=== PATIENT | female | born 1940 | race Caucasian/White ===

== ENCOUNTER 2024-04-16 10:40 | Day surgery (SDC) | payer MEDICARE, BC, MEDICAID, SELFPAY ==
[2024-04-16] VITALS (9 sets, daily range): BP systolic 115–181; BP diastolic 60–121; PULSE 80–99; RESP 12–19; TEMP 36.2–36.8; O2SAT 92–98; BMI 33.6
[2024-04-16] MEDS: MIDAZOLAM INJ 1 MG/ML VIAL 2 ML (ASD USE ONLY) 2 MG IV (12:35)
[2024-04-16] MEDS: DiphenhydrAMINE INJ 50 MG/ML VIAL 25 MG IV (12:38)
[2024-04-16] MEDS: fentaNYL CIT INJ 50 mCg/ML AMP 2ML (ASD USE ONLY) IV (12:38)
[2024-04-16] MEDS: ONDANSETRON INJ 2 MG/ML INJ 2 ML 4 MG IV (12:40)
[2024-04-16] MEDS: SODIUM CHLORIDE 0.9% 250 ML 250 ML 20 ML IV (12:40)
== END 2024-04-16 13:18 | disposition home or self-care (01) ==
PROVIDERS: PCP Otolaryngology; Referring Provider Specialist; Visit Provider Specialist
PROC: (CPT 43239; principal; 2024-04-16 11:00)
DX: K22.2 Esophageal obstruction (principal); K22.10 Ulcer of esophagus without bleeding; K29.60 Other gastritis without bleeding; K29.50 Unspecified chronic gastritis without bleeding
CPT/HCPCS: 43248; 43239; A4649; C1769; J1200; J2250; J2405; J3010; J7050

== ENCOUNTER → 2024-07-17 | Outpatient (CLI) | payer MEDICARE, BC, MEDICAID, SELFPAY ==
--- NOTE | 2024-07-17 16:00 | XR_ITS ---
Examination: CT abdomen and pelvis without contrast. Coronal 3-D reconstructions. Sagittal 2-D reconstructions. Date and time of exam:July 17, 2024 1600 hours INDICATIONS:: Diarrhea upper abdominal pain beginning 3 weeks ago CTDI: vol (mGy): 11 DLP: (mGycm): 565 Technique: Axial images of the abdomen have been obtained, 3 mm slice thickness Intravenous contrast material has not been administered. Low dose protocols were performed. One or more of the following dose reduction techniques were used; automated exposure control, adjustment of the mA and/or KV according to patient size, use of iterative reconstruction technique. Findings: The liver is mildly irregular in contour, no focal liver lesions No gallstones Spleen not enlarged No pancreatic mass No renal or ureteral calculi, no hydronephrosis No bowel obstruction Normal appendix Scattered colonic diverticulosis, no diverticulitis Atrophic uterus Urinary bladder intact Grade 1 anterolisthesis L4 on L5 IMPRESSION: Suspect primary hepatocellular disease, no focal liver lesions No renal or ureteral calculi, no hydronephrosis Scattered colonic diverticulosis, no diverticulitis
== END | disposition home or self-care (01) ==
LOC: CCTX 15:12
PROVIDERS: PCP Emergency Medicine; Referring Provider Specialist; Visit Provider Specialist
DX: K57.30 Diverticulosis of large intestine without perforation or abscess without bleeding (principal)
CPT/HCPCS: 74176

== ENCOUNTER 2024-07-27 10:40 | Day surgery (SDC) | payer MEDICARE, BC, MEDICAID, SELFPAY ==
[2024-07-27] VITALS (8 sets, daily range): BP systolic 107–144; BP diastolic 59–96; PULSE 73–92; RESP 13–20; TEMP 36.4–36.5; O2SAT 93–98; BMI 33.8
[2024-07-27] MEDS: SODIUM CHLORIDE 0.9% 500 ML 500 ML 20 ML IV (12:20)
[2024-07-27] MEDS: MIDAZOLAM INJ 1 MG/ML VIAL 2 ML (ASD USE ONLY) 2 MG IVP (12:25)
[2024-07-27] MEDS: DiphenhydrAMINE INJ 50 MG/ML VIAL 25 MG IVP (12:25)
[2024-07-27] MEDS: fentaNYL CIT INJ 50 mCg/ML AMP 2ML (ASD USE ONLY) IVP (12:28)
--- NOTE | 2024-07-27 13:51 | SUR.PHASEII ---
1310 TRANSPORTATION [facility] CALLED. THIS NURSE IS INFORMED THAT THE SUPERVISOR [employer] IS ON THE WAY TO THE FACILITY FROM [place]. 1330 DISCHARGE INSTRUCTIONS GIVEN TO EKN (PATIENT'S ROOMATE). [phone]. KEN VERBALIZES UNDERSTANDING AND INFORMS THIS NURSE SHE WILL BE HOME TO ACCEPT HER WHEN SHE ARRIVES. 5347 MEDICAL TRANSPORT ARRIVES TO TRANSPORT PATIENT HOME.
== END 2024-07-27 13:53 | disposition home or self-care (01) ==
PROVIDERS: PCP Specialist; Referring Provider Specialist; Visit Provider Specialist
PROC: 0DBE8ZX Excision of Large Intestine, Via Natural or Artificial Opening Endoscopic, Diagnostic (ICD-10-PCS; CPT 45380; principal; 2024-07-27 10:45)
DX: K52.9 Noninfective gastroenteritis and colitis, unspecified (principal); K63.89 Other specified diseases of intestine; K62.89 Other specified diseases of anus and rectum; K64.9 Unspecified hemorrhoids; K57.30 Diverticulosis of large intestine without perforation or abscess without bleeding
CPT/HCPCS: 45380; J1200; J2250; J3010; J7040

== ENCOUNTER → 2024-08-14 | Outpatient (CLI) | payer MEDICARE, BC, MEDICAID, SELFPAY ==
[2024-08-14 10:42] VITALS: PULSE 83; PULSE 85; RESP 18; RESP 20; O2SAT 100; O2SAT 97
[2024-08-14 10:44] VITALS: PULSE 83
[2024-08-14] MEDS: ALBUTEROL RT 2.5 MG/3 ML NEBU INH (10:44)
== END | disposition home or self-care (01) ==
LOC: SRTX 09:16
PROVIDERS: PCP Emergency Medicine; Referring Provider Specialist; Visit Provider Specialist
DX: R06.02 Shortness of breath (principal)
CPT/HCPCS: 94013; 94060; 94640; 94726; 94729

== ENCOUNTER → 2024-12-31 | Outpatient (CLI) | payer MEDICARE, BC, MEDICAID, SELFPAY ==
[2024-12-31 18:08] LABS: Basophils # (Auto) 0.1 Thou/mm3 (0.0-0.2); Basophils % (Auto) 1 % (0-2.5); Eosinophils # (Auto) 0.3 Thou/mm3 (0.0-0.5); Eosinophils % (Auto) 3 % (0-10); Hematocrit 41.7 % (36.0-46.0); Hemoglobin 13.1 g/dL (12.0-16.0); Immature Granulocytes Auto 0.02 Thou/mm3 (0.00-0.00); Lymphocytes # (Auto) 3.8 Thou/mm3 (1.0-4.8); Lymphocytes % (Auto) 36 % (10-50); Mean Corpuscular HGB Conc 31.4 g/dl (31.0-37.0); Mean Corpuscular Hemoglobin 29.6 pg (25.0-35.0); Mean Corpuscular Volume 94 fL (80-100); Monocytes # (Auto) 0.6 Thou/mm3 (0.0-0.8); Monocytes % (Auto) 6 % (0-12); Neutrophils # (Auto) 5.7 Thou/mm3 (1.8-7.7); Neutrophils % (Auto) 54 % (37-80); Nucleated Red Blood Cell # 0.00 Thou/mm3 (0.00-0.00); Nucleated Red Blood Cell % 0 /100 WBC (0); Platelet Count 373 Thou/mm3 (140-440); RDW Standard Deviation 45.4 fL (36.4-46.3); Red Blood Count 4.42 Miln/mm3 (4.00-5.20); White Blood Count 10.5 Thou/mm3 (3.6-11.0)
[2024-12-31 20:46] LABS: Alanine Aminotransferase 9 U/L (10-49); Albumin, Serum 4.7 gm/dL (3.4-4.8); Albumin/Globulin Ratio 2.5 (1.2-2.2); Alkaline Phosphatase 57 U/L (46-116); Anion Gap 11 (7-16); Aspartate Amino Transferase 17 U/L (0-34); BUN/Creatinine Ratio 20 Ratio (12-20); Bilirubin,Total 0.8 mg/dL (0.3-1.2); Blood Urea Nitrogen 16 mg/dL (9-23); Calcium 9.9 mg/dL (8.3-10.6); Calcium (Corrected) 9.9 mg/dL (8.5-10.1); Carbon Dioxide 25.6 mMol/L (20.0-31.0); Chloride 109 mMol/L (98-107); Creatinine (Component) 0.8 mg/dL (0.6-1.3); Free T3 2.7 pg/mL (2.3-4.2); Free T4 (Free Thyroxine) 1.22 ng/dL (0.89-1.76); Globulin 1.9 gm/dL (2.3-3.5); Glucose 123 mg/dL (74-106); Osmolality,Calculated 292 (275-295); Potassium 4.1 mMol/L (3.4-5.1); Sodium 146 mMol/L (136-145); Thyroid Stimulating Hormone 0.71 uIU/mL (0.55-4.78); Total Protein 6.6 gm/dL (5.7-8.2); eGFR > 60 See Note
== END | disposition home or self-care (01) ==
LOC: COPL 16:57
PROVIDERS: Referring Provider Specialist; Visit Provider Specialist
DX: E78.9 Disorder of lipoprotein metabolism, unspecified (principal); R19.7 Diarrhea, unspecified
CPT/HCPCS: 36415; 80053; 84439; 84443; 84481; 85025